=== PATIENT | male | born 1955 | race Caucasian/White ===

== ENCOUNTER 2017-04-06 16:24 | Emergency (ER) | payer MEDICARE ==
[2017-04-06 16:47] VITALS: BP 127/75
[2017-04-06] MEDS ORDERED: Eye Irrigation Solution 30 ML BOTTLE LEFT EYE ONE (16:48)
[2017-04-06] MEDS ORDERED: Tetracaine 0.5% OPTH.SOL 4 ML* 1 DROP BTL LEFT EYE ONE (16:48)
[2017-04-06] MEDS ORDERED: Fluorescein Sodium TOPICAL* 1 MG TEST OPHTHALMIC ONE (16:48)
--- NOTE | 2017-04-06 17:14 | UC ---
Eye Complaint HPI - HPI Summary HPI Summary: PICKING UP GARBAGE YESTERDAY GOT UNKNOWN MATERIAL IN LEFT EYE. TODAY LEFT EYE IS RED AND IRRITATED. - History of Current Complaint Chief Complaint: UCEye Stated Complaint: FOREIGN BODY LEFT EYE Time Seen by Provider: 04/06/17 16:46 Hx Obtained From: Patient Onset/Duration: Gradual Onset, Lasting Hours Severity Initially: Mild Severity Currently: Moderate Location of Injury: Conjunctiva Character: Dull, Foreign Body Sensation Aggravating Factor(s): Nothing Alleviating Factor(s): Nothing Associated Signs And Symptoms: Positive: Drainage (Clear), Drainage (Purulent) - Risk Factors Penetrating Injury Risk Factor: Negative Globe Rupture Risk Factors: Negative Acute Glaucoma Risk Factors: Negative Optic Artery Occlusion Risk Factors: Negative - Allergies/Home Medications Allergies/Adverse Reactions: Allergies Allergy/AdvReac Type Severity Reaction Status Date / Time No Known Allergies Allergy Verified 04/06/17 16:39 PMH/Surg Hx/FS Hx/Imm Hx Previously Healthy: Yes - Surgical History Surgical History: Yes Surgery Procedure, Year, and Place: hernia X2 - Family History Known Family History: Negative: Respiratory Disease - Social History Occupation: Employed Full-time Lives: With Family Alcohol Use: None Substance Use Type: None Smoking Status (MU): Never Smoked Tobacco When Did the Patient Quit Smoking/Using Tobacco: 5 years ago - Immunization History Most Recent Influenza Vaccination: 2017 Review of Systems Constitutional: Negative Skin: Negative Eyes: Drainage, Eye Redness ENT: Negative Respiratory: Negative Cardiovascular: Negative Gastrointestinal: Negative Genitourinary: Negative Motor: Negative Neurovascular: Negative Musculoskeletal: Negative Neurological: Negative Psychological: Negative Is Patient Immunocompromised?: No All Other Systems Reviewed And Are Negative: Yes Physical Exam Triage Information Reviewed: Yes Appearance: Well-Appearing, No Pain Distress, Well-Nourished Vital Signs: Initial Vital Signs Temp 98.5 F 04/06/17 16:40 Pulse 55 04/06/17 16:40 Resp 16 04/06/17 16:40 BP 127/75 04/06/17 16:40 Pulse Ox 100 04/06/17 16:40 Eyes: Positive: Conjunctiva Inflamed - LEFT, Discharge, Other: - FLUORESCEIN UPTAKE 0.3CM X 0.3CM LEFT EYE TEN OCLOCK ENT Exam: Normal ENT: Positive: Normal ENT inspection, Hearing grossly normal Dental Exam: Normal Neck exam: Normal Neck: Positive: Supple, Nontender, No Lymphadenopathy Respiratory Exam: Normal Respiratory: Positive: Chest non-tender, Lungs clear, Normal breath sounds, No respiratory distress, No accessory muscle use Cardiovascular Exam: Normal Cardiovascular: Positive: RRR Abdominal Exam: Normal Musculoskeletal Exam: Normal Neurological Exam: Normal Psychological Exam: Normal Skin Exam: Normal Eye Complaint Course/Dx - Differential Dx/Diagnosis Differential Diagnosis/HQI/PQRI: Conjunctivitis, Corneal Abrasion Provider Diagnoses: LEFT CORNEAL ABRASION Discharge - Discharge Plan Condition: Stable Disposition: HOME Prescriptions: Tobramycin 0.3% OPHTH.ABBIE* 1 drop LEFT EYE Q4H #1 btl Patient Education Materials: Corneal Abrasion (ED) Referrals: Irais Jacob MD [Primary Care Provider] - Lyly Bojorquez MD [Medical Doctor] -
== END 2017-04-06 17:26 | disposition home or self-care (01) ==
LOC: UCCORT 16:24
DX: S05.02XA Injury of conjunctiva and corneal abrasion without foreign body, left eye, initial encounter (principal); W22.8XXA Striking against or struck by other objects, initial encounter
CPT/HCPCS: 99212; A9270-GY; G0463

== ENCOUNTER 2018-12-05 15:18 | Emergency (ER) | payer MEDICARE ==
[2018-12-05 15:57] VITALS: BP 125/65
--- NOTE | 2018-12-05 16:11 | UC ---
Back Pain HPI - HPI Summary HPI Summary: pt is c/o pain in his mid-low back x 3 days. he denies hx of injury. sometimes the pain goes into his L leg. he admits to a prior hx of the same. he has been txing with otc back pain patches with no relief. - History of Current Complaint Chief Complaint: UCBackPain Stated Complaint: BACK PAIN Time Seen by Provider: 12/05/18 16:03 Hx Obtained From: Patient Timing: Constant Pain Intensity: 6 Aggravating Factor(s): Movement Alleviating Factor(s): Rest Associated Signs And Symptoms: Negative: Fever, Weakness, Abdominal Pain, Flank Pain, Bladder Incontinence, Bowel Incontinence - Allergies/Home Medications Allergies/Adverse Reactions: Allergies Allergy/AdvReac Type Severity Reaction Status Date / Time No Known Allergies Allergy Verified 12/05/18 15:39 Home Medications: Home Medications Atorvastatin* [Lipitor*] 20 mg PO QPM 12/05/18 [History Confirmed 12/05/18] Chlorthalidone TAB* [Hygroton TAB*] 25 mg PO DAILY 12/05/18 [History Confirmed 12/05/18] Levothyroxine TAB* [Synthroid TAB*] 150 mcg PO DAILY 12/05/18 [History Confirmed 12/05/18] risperiDONE TAB* [RisperDAL*] 2 mg PO BEDTIME 12/05/18 [History Confirmed ] PMH/Surg Hx/FS Hx/Imm Hx Endocrine History: Thyroid Disease, Dyslipidemia Psychological History: Schizophrenia - Surgical History Surgical History: Yes Surgery Procedure, Year, and Place: hernia X2. THYROIDECTOMY TWICE - Family History Known Family History: Negative: Respiratory Disease - Social History Alcohol Use: None Substance Use Type: None Smoking Status (MU): Former Smoker When Did the Patient Quit Smoking/Using Tobacco: 5 years ago - Immunization History Most Recent Influenza Vaccination: 2017 Review of Systems All Other Systems Reviewed And Are Negative: Yes Constitutional: Negative: Fever Gastrointestinal: Negative: Abdominal Pain Neurological: Negative: Weakness, Numbness Physical Exam Triage Information Reviewed: Yes Appearance: Well-Appearing Vital Signs: Initial Vital Signs Temp 97.9 F 12/05/18 15:48 Pulse 67 12/05/18 15:48 Resp 18 12/05/18 15:48 BP 125/65 12/05/18 15:48 Pulse Ox 99 12/05/18 15:48 Vital Signs Reviewed: Yes Neck: Positive: Supple, Nontender, No Lymphadenopathy, Other: - c-spine is non tender Respiratory: Positive: Lungs clear, No respiratory distress Cardiovascular: Positive: RRR, Pulses Normal - BUE's Abdomen Description: Positive: Nontender, No Organomegaly, Soft. Negative: Pulsatile Mass Bowel Sounds: Positive: Present Musculoskeletal: Positive: Other: - Back: circular area of mild erythema(site where pt applying otc patch) low-mid back. lumbar paraspinal mm tenderness. rom intact but pt c/o low back pain. 5/5 strength, 2+ reflexes and sensation intactx4. steady gait. No saddle anesthesia. negative straight leg raises x2. Neurological: Positive: Alert Psychological: Positive: Age Appropriate Behavior Skin Exam: Normal Back Pain Course/Dx - Differential Dx/Diagnosis Differential Diagnosis/HQI/PQRI: Other - no concern for acute abdomen or cauda equina. rash on low back is central plus per pt, it is from his back patch thus not shingles. Provider Diagnosis: Back pain Discharge - Sign-Out/Discharge Documenting (check all that apply): Patient Departure All imaging exams completed and their final reports reviewed: No Studies - Discharge Plan Condition: Stable Disposition: HOME Prescriptions: Cyclobenzaprine TAB* [Flexeril 10 MG TAB*] 10 mg PO TID PRN #10 tab PRN Reason: Pain - Back Ibuprofen TAB* [Motrin TAB* 600 MG] 600 mg PO Q8H 5 Days #15 tab Patient Education Materials: Acute Low Back Pain (ED) Referrals: TORIN Tapia [Primary Care Provider] - 3 Days - Billing Disposition and Condition Condition: STABLE Disposition: Home
[2018-12-06 14:59] LABS: HIV 4th Generation Negative (Negative)
== END 2018-12-05 16:28 | disposition home or self-care (01) ==
LOC: UCCORT 15:18
DX: M54.5 Low back pain (principal); R21 Rash and other nonspecific skin eruption; E07.9 Disorder of thyroid, unspecified; E78.5 Hyperlipidemia, unspecified; F20.9 Schizophrenia, unspecified; Z87.891 Personal history of nicotine dependence
CPT/HCPCS: 36415; 87389; 99212; G0463